=== PATIENT | female | born 1970 | race Caucasian/White ===

== ENCOUNTER 2022-08-20 08:31 | Outpatient (CLI) | payer OTHER, SELFPAY | END 2022-08-20 08:32 | disposition home or self-care (01) | PROVIDERS: Visit Provider Family Medicine | DX: Z00.00 Encounter for general adult medical examination without abnormal findings (principal); I10 Essential (primary) hypertension; G89.29 Other chronic pain; Z13.6 Encounter for screening for cardiovascular disorders | CPT/HCPCS: 80061; 80076 ==

== ENCOUNTER 2022-09-03 07:23 | Outpatient (CLI) | payer OTHER, SELFPAY ==
--- NOTE | 2022-09-03 06:59 | W.ANESCHARGE ---
Anesthesia Charges Start Date/Time Anesthesia Start Date: 09/03/22 Anesthesia Start Time: 08:34 Stop Date/Time Anesthesia Stop Date: 09/03/22 Anesthesia Stop Time: 09:31
--- NOTE | 2022-09-03 09:33 | W.ANESCHARGE ---
Anesthesia Charges Start Date/Time Anesthesia Start Date: 09/03/22 Anesthesia Start Time: 08:34 Stop Date/Time Anesthesia Stop Date: 09/03/22 Anesthesia Stop Time: 09:31
== END 2022-09-03 07:24 | disposition home or self-care (01) ==
PROVIDERS: PCP Family Medicine; Visit Provider Surgery
DX: Z12.11 Encounter for screening for malignant neoplasm of colon (principal); K63.5 Polyp of colon; K62.1 Rectal polyp; K57.30 Diverticulosis of large intestine without perforation or abscess without bleeding
CPT/HCPCS: 45385; 811; 88305; J2704

== ENCOUNTER 2022-11-22 13:35 | Outpatient (CLI) | payer OTHER, SELFPAY ==
--- NOTE | 2022-11-22 16:05 | CRLHL7_ITS ---
For Patients: As a result of the Century Cures Act, medical imaging exams and procedure reports are released immediately into your electronic medical record. You may view this report before your referring provider. If you have questions, please contact your health care provider. BILATERAL SCREENING MAMMOGRAM WITH COMPUTER-AIDED DETECTION AND TOMOSYNTHESIS TECHNIQUE: CC, MLO and implant-displaced views were obtained. These mammographic images have been obtained using full-field digital technique. These mammographic images were interpreted with the benefit of computer-aided detection. Breast tomosynthesis was used in this interpretation. COMPARISON FILM: 10/27/14. FINDINGS: There are scattered areas of fibroglandular density. IMPRESSION: There is no radiographic evidence for malignancy. ASSESSMENT: BI-RADS Category 2: Benign RECOMMENDATION: Routine screening mammogram in 1 year. A lay language report of this examination will be provided to the patient. TOMMY KELLEY M.D. Diagnostic/Nuclear Medicine Radiologist [email or web address] Transcribed: 2:[address]/Dictated by: Tommy Kelley MD @ 11/29/2022 10:45:00 AM (Electronically Signed)
== END 2022-11-22 13:36 | disposition home or self-care (01) ==
LOC: MAMMO 13:36
PROVIDERS: PCP Family Medicine; Visit Provider Family Medicine
DX: Z12.31 Encounter for screening mammogram for malignant neoplasm of breast (principal)
CPT/HCPCS: 77063; 77067

== ENCOUNTER 2023-06-17 13:44 | Outpatient (CLI) | payer OTHER, SELFPAY ==
[2023-06-21 00:30] LABS: HSV 1 Subtype by PCR Not Detected; HSV 2 Subtype by PCR Detected; Herpes Simplex Subtype Source Vesicle
== END 2023-06-17 13:45 | disposition home or self-care (01) ==
LOC: LKVREF 13:45
PROVIDERS: PCP Family Medicine; Visit Provider Nurse Practitioner Family
DX: A60.1 Herpesviral infection of perianal skin and rectum (principal)
CPT/HCPCS: 87529